=== PATIENT | male | born 1985 | race African-American/Black ===

== ENCOUNTER 2021-12-20 08:08 | Emergency (ER) | payer OTHER ==
[~2021-12-20] VITALS: Ht 170.2 cm; Wt 63.5 kg
--- NOTE | 2021-12-20 08:08 | NUR ---
BRIANNA ROMERO ALS TAKEN TO ER BED 3.
[2021-12-20 08:15] VITALS: BP 101/55
[2021-12-20] MEDS ORDERED: levETIRAcetam 1,000 MG in NACL 0.9% 100 ML IV ONE (08:20)
[2021-12-20] MEDS ORDERED: NACL 0.9% 1,000 ML IV ONE (08:20)
--- NOTE | 2021-12-20 08:26 | NUR ---
36 Y/O MALE BIBA FROM HOME FOR WITNESSED SEIZURE BY . PER EMT PT WAS POSTICTAL ON ARRIVAL, DENIES INCONTINENCE, DENIES LOC, DENIES HEAD INJURY. DENIES FEVER/CHILLS. DENIES N/V/D. IV ESTABLISHED TO RIGHT AC 18G SL ON ARRIVAL. PMH: SEIZURES NKA
[2021-12-20 08:45] LABS: BASOPHILS % (AUTO) 0.3 % (0.0-2.0); EOSINOPHILS # (AUTO) 0.1 K/uL (0-0.4); EOSINOPHILS % (AUTO) 0.6 % (0.0-4.0); HEMATOCRIT 39.9 % (36-52); LYMPHOCYTES # (AUTO) 0.4 K/uL (2.0-11.5); LYMPHOCYTES % (AUTO) 4.6 % (20.5-51.1); MEAN CORPUSCULAR HEMOGLOBIN 30 pg (27-31); MEAN CORPUSCULAR HGB CONC 33 g/dL (33-37); MEAN CORPUSCULAR VOLUME 91.8 fL (80-94); MONOCYTES # (AUTO) 0.4 K/uL (0.8-1.0); MONOCYTES % (AUTO) 3.7 % (1.7-9.3); NEUTROPHILS # (AUTO) 8.9 K/uL (1.8-7.7); NEUTROPHILS % (AUTO) 90.8 % (42.2-75.2); PLATELET COUNT (AUTO) 152 K/uL (140-450); RED BLOOD CELL COUNT(AUTO) 4.34 MIL/uL (4.20-6.10); RED CELL DISTRIBUTION WIDTH 14.2 % (11.6-13.7); WHITE BLOOD COUNT (AUTO) 9.8 K/uL (4.8-10.8)
--- NOTE | 2021-12-20 08:48 | NUR ---
covid gayatri swab done.
--- NOTE | 2021-12-20 08:51 | NUR ---
COLLECTED SHON PITT, WALKED TO LAB.
[2021-12-20 09:08] LABS: ALBUMIN 3.6 g/dL (3.4-5.0); ANION GAP 17.2 (8-16); CARBON DIOXIDE 21.6 mmol/L (21-32); CREATININE 1.3 mg/dL (0.6-1.3); POTASSIUM 3.8 mmol/L (3.5-5.1); TOTAL BILIRUBIN 0.4 mg/dL (0.0-1.0)
[2021-12-20 10:01] VITALS: BP 100/58
--- NOTE | 2021-12-20 10:05 | NUR ---
Patient discharged with v/s stable. Written and verbal after care instructions given FOR SEIZURES and explained. Patient verbalized understanding. W/C ASSISTED with to car. All questions addressed prior to discharge. Advised to follow up with PMD.
== END 2021-12-20 10:05 | disposition home or self-care (01) ==
LOC: MED 08:08
DX: R41.82 Altered mental status, unspecified (principal); Z20.822 Contact with and (suspected) exposure to COVID-19; G40.909 Epilepsy, unspecified, not intractable, without status epilepticus; I25.10 Atherosclerotic heart disease of native coronary artery without angina pectoris
CPT/HCPCS: 36415; 80053; 85025; 87426; 96360; 99283; J7030; J1953